=== PATIENT | male | born 1960 | race Native Hawaiian/Other Pacific Islander ===

== ENCOUNTER 2016-10-27 03:27 | Emergency (ER) | payer MEDICAID ==
[~2016-10-27] VITALS: Ht 180.3 cm; Wt 124.7 kg
[~2016-10-27 03:27] MED LIST: ALL100T PO; ASPI81TA13 PO; HYDR25TA4 PO; LOS50T PO; METF-312 PO; SIMV-8 PO; [UNRECOGNIZED DRUG - REMARK]
[2016-10-27 03:59] LABS: Basophils # (auto) 0 uL; Basophils % (auto) 0.3 % (0.0-2.0); Eosinophils # (auto) 0.1 uL; Eosinophils % (auto) 1.2 % (0.0-7.0); Hematocrit 48.3 % (41.0-53.0); Hemoglobin 15.7 g/dL (13.5-17.5); Lymphocytes # (auto) 3.5 uL; Mean Corpuscular Hgb Conc. 32.5 g/dL (32.0-36.0); Mean Corpuscular Volume 89.3 fL (80.0-100.0); Mean Platelet Volume 8.5 fL (7.4-10.4); Monocytes # (auto) 0.7 uL; Monocytes % (auto) 7.3 % (0.0-12.0); Neutrophils # (auto) 5.8 uL; Neutrophils % (auto) 57.2 % (37.0-80.0); Platelet Count (auto) 262 10^3/uL (140-450); Red Cell Distribution Width 12.7 % (11.6-16.0); White Blood Cell 10.2 10^3/uL (4.4-10.8)
[2016-10-27 04:27] LABS: Albumin 3.8 g/dL (3.4-5.0); BUN/Creatinine Ratio 16.3; Bilirubin, Total 0.5 mg/dL (0.2-1.0); Calcium 8.9 mg/dL (8.5-10.1); Total Protein 7.8 g/dL (6.4-8.2)
[2016-10-27 06:48] VITALS: BP 139/77
== END 2016-10-27 07:40 | disposition home or self-care (01) ==
LOC: ER 03:29
DX: G44.209 Tension-type headache, unspecified, not intractable (principal); E11.9 Type 2 diabetes mellitus without complications; M10.9 Gout, unspecified; I10 Essential (primary) hypertension; Z86.73 Personal history of transient ischemic attack (TIA), and cerebral infarction without residual deficits; Z79.82 Long term (current) use of aspirin; Z79.899 Other long term (current) drug therapy
CPT/HCPCS: 36415; 70450; 72125; 80053; 84484; 85025; 93005; 94761

== ENCOUNTER 2017-02-06 14:37 | Emergency (ER) | payer MEDICAID ==
[~2017-02-06] VITALS: Ht 180.3 cm; Wt 131.5 kg
[2017-02-06 18:20] VITALS: BP 117/78
[2017-02-06] MEDS ORDERED: IBUPROFEN 600 MG TAB PO ONE ×2 (18:47→19:00)
== END 2017-02-06 18:53 | disposition home or self-care (01) ==
LOC: ER 14:47
DX: G44.209 Tension-type headache, unspecified, not intractable (principal); E11.9 Type 2 diabetes mellitus without complications; I10 Essential (primary) hypertension; E78.5 Hyperlipidemia, unspecified; M10.9 Gout, unspecified; Z86.73 Personal history of transient ischemic attack (TIA), and cerebral infarction without residual deficits; Z87.891 Personal history of nicotine dependence
CPT/HCPCS: 70450; 82962

== ENCOUNTER 2017-08-27 11:54 | Emergency (ER) | payer MEDICAID, OTHER ==
[~2017-08-27] VITALS: Ht 180.3 cm; Wt 135.2 kg
[~2017-08-27 11:54] MED LIST changes: -METF-312 PO; +METF-370 PO
[2017-08-27 12:53] VITALS: BP 123/75
== END 2017-08-27 14:49 | disposition home or self-care (01) ==
LOC: ER 11:54
DX: M17.12 Unilateral primary osteoarthritis, left knee (principal); M10.9 Gout, unspecified; I25.10 Atherosclerotic heart disease of native coronary artery without angina pectoris; E11.9 Type 2 diabetes mellitus without complications; I10 Essential (primary) hypertension; E78.5 Hyperlipidemia, unspecified; W19.XXXA Unspecified fall, initial encounter; Y93.89 Activity, other specified; Y92.89 Other specified places as the place of occurrence of the external cause; Y99.8 Other external cause status; Z86.73 Personal history of transient ischemic attack (TIA), and cerebral infarction without residual deficits; Z79.82 Long term (current) use of aspirin; Z87.891 Personal history of nicotine dependence
CPT/HCPCS: 73562

== ENCOUNTER 2017-09-18 09:13 | Emergency (ER) | payer OTHER ==
[~2017-09-18] VITALS: Ht 180.3 cm; Wt 136.1 kg
[2017-09-18 09:23] VITALS: BP 160/58
== END 2017-09-18 13:20 | disposition home or self-care (01) ==
LOC: ER 09:13
DX: M25.562 Pain in left knee (principal); E11.9 Type 2 diabetes mellitus without complications; I10 Essential (primary) hypertension; M10.9 Gout, unspecified; Z86.73 Personal history of transient ischemic attack (TIA), and cerebral infarction without residual deficits; E78.5 Hyperlipidemia, unspecified; Z98.61 Coronary angioplasty status; Z87.891 Personal history of nicotine dependence; Z79.899 Other long term (current) drug therapy

== ENCOUNTER 2018-10-15 02:56 | Emergency (ER) | payer MEDICAID, OTHER ==
[~2018-10-15] VITALS: Ht 180.3 cm; Wt 118.8 kg
[~2018-10-15 02:56] MED LIST changes: +ASPI1TAB19 PO; -ASPI81TA13 PO
[2018-10-15 06:45] VITALS: BP 165/81
== END 2018-10-15 08:05 | disposition home or self-care (01) ==
LOC: ER 03:08
DX: M25.512 Pain in left shoulder (principal); E11.9 Type 2 diabetes mellitus without complications; E78.5 Hyperlipidemia, unspecified; I10 Essential (primary) hypertension; Z98.61 Coronary angioplasty status; Z86.73 Personal history of transient ischemic attack (TIA), and cerebral infarction without residual deficits; Z87.891 Personal history of nicotine dependence
CPT/HCPCS: 73030; 82962; 93005

== ENCOUNTER 2019-05-24 09:28 | Emergency (ER) | payer MEDICAID ==
[~2019-05-24] VITALS: Ht 180.3 cm; Wt 134.7 kg
[2019-05-24 09:52] VITALS: BP 174/100
== END 2019-05-24 12:33 | disposition home or self-care (01) ==
LOC: ER 09:33
DX: M10.9 Gout, unspecified (principal); E11.9 Type 2 diabetes mellitus without complications; E78.5 Hyperlipidemia, unspecified; I10 Essential (primary) hypertension; Z87.891 Personal history of nicotine dependence; Z98.61 Coronary angioplasty status; Z86.73 Personal history of transient ischemic attack (TIA), and cerebral infarction without residual deficits; Z79.899 Other long term (current) drug therapy

== ENCOUNTER → 2019-06-30 | Emergency (ER) | payer MEDICAID | END | disposition left against medical advice (07) | LOC: ER 19:09 | DX: M54.9 Dorsalgia, unspecified (principal); Z53.21 Procedure and treatment not carried out due to patient leaving prior to being seen by health care provider ==

== ENCOUNTER 2019-07-02 19:19 | Emergency (ER) | payer MEDICAID ==
[~2019-07-02] VITALS: Ht 180.3 cm; Wt 134.7 kg
[2019-07-02 19:32] VITALS: BP 174/103
[2019-07-02] MEDS ORDERED: IBUPROFEN 800 MG TAB PO ONE (21:45)
[2019-07-02] MEDS ORDERED: ACETAMINOPHEN 500 MG TAB PO ONE (21:45)
== END 2019-07-02 22:06 | disposition home or self-care (01) ==
LOC: ER 19:27
DX: M54.5 Low back pain (principal); E11.9 Type 2 diabetes mellitus without complications; E78.5 Hyperlipidemia, unspecified; I10 Essential (primary) hypertension; Z86.73 Personal history of transient ischemic attack (TIA), and cerebral infarction without residual deficits; Z95.5 Presence of coronary angioplasty implant and graft; Z79.899 Other long term (current) drug therapy

== ENCOUNTER 2019-07-26 03:16 | Inpatient (IN) | payer MEDICAID ==
[~2019-07-26] VITALS: Ht 180.3 cm; Wt 133.5 kg
[2019-07-26] MEDS ORDERED: cloNIDine HCL 0.1 MG TAB PO ONE (04:30)
[2019-07-26 04:32] LABS: Urine WBC None Seen /hpf (0 - 3)
[2019-07-26 04:40] LABS: Basophils # (auto) 0 uL; Basophils % (auto) 0.4 % (0.0-2.0); Eosinophils # (auto) 0.1 uL; Hematocrit 45.4 % (41.0-53.0); Hemoglobin 15.4 g/dL (13.5-17.5); Lymphocytes # (auto) 2.4 uL; Lymphocytes % (auto) 29.6 % (10.0-50.0); Mean Corpuscular Hemoglobin 30.8 pg (28.0-32.0); Mean Corpuscular Volume 90.5 fL (80.0-100.0); Monocytes # (auto) 0.7 uL; Monocytes % (auto) 8.9 % (0.0-12.0); Neutrophils # (auto) 4.8 uL; Neutrophils % (auto) 60.1 % (37.0-80.0); Nucleated Red Blood Cells % 0.1 %; Platelet Count (auto) 194 10^3/uL (140-450); Red Blood Cells 5.02 10^6/uL (4.5-5.90); Red Cell Distribution Width 12.4 % (11.8-14.3)
[2019-07-26 04:41] LABS: Urine Bacteria NONE SEEN /hpf (None Seen); Urine Blood Negative /uL (Negative); Urine Specific Gravity 1.007 (1.001-1.035)
[2019-07-26 04:58] LABS: Albumin 3.9 g/dL (3.4-5.0); Calcium 8.3 mg/dL (8.5-10.1)
[2019-07-26 05:01] LABS: Alcohol, Urine < 3.0 mg/dL (0-5); Amphetamine Screen, Urine NEGATIVE (NEGATIVE); Barbiturate Scree,Urine NEGATIVE (NEGATIVE); Benzodiazephine Screen, Urine NEGATIVE (NEGATIVE); Cannabinoid Screen, Urine POSITIVE (NEGATIVE); Cocaine Screen, Urine NEGATIVE (NEGATIVE); Opiate Scree,Urine NEGATIVE (NEGATIVE); Phencyclidine Screen, Urine NEGATIVE (NEGATIVE)
[2019-07-26 05:03] LABS: BUN/Creatinine Ratio 15.2; Bilirubin, Total 0.4 mg/dL (0.2-1.0); Total Protein 7.8 g/dL (6.4-8.2)
[2019-07-26] MEDS: SODIUM CHLORIDE 0.9% 1,000 ML IV SCH ×2 (09:58→23:18)
[2019-07-26] MEDS ORDERED: PROMETHAZINE HCL 25 MG/ML 1ML IV PRN (10:00)
[2019-07-26] MEDS ORDERED: TEMAZEPAM 15 MG CAP PO PRN (10:00)
[2019-07-26] MEDS ORDERED: NITROGLYCERIN 0.4 MG SL TAB SL PRN (10:00)
[2019-07-26] MEDS ORDERED: traMADol HCL 50 MG TAB PO PRN (10:00)
[2019-07-26] MEDS ORDERED: DEXTROSE (50%) 50ML SYRG IV PRN (10:00)
[2019-07-26] MEDS ORDERED: LACTULOSE 20Gm/30ML SOLN PO PRN (10:00)
[2019-07-26] MEDS ORDERED: ACETAMINOPHEN 500 MG TAB PO PRN (10:00)
[2019-07-26] MEDS ORDERED: MORPHINE SULF INJ 2 MG/ML SYRINGE 1ML IV PRN (10:00)
[2019-07-26] MEDS ORDERED: ASPirin-EC 81 mg tab PO SCH (10:00)
[2019-07-26 10:33] LABS: CRP High Sensitivity 0.12 mg/dL (< 0.3)
[2019-07-26] MEDS: ALLOPURINOL 100 MG TAB PO SCH (10:54)
[2019-07-26] MEDS: PANTOPRAZOLE 40 MG TAB PO SCH (10:55)
[2019-07-26] MEDS: ASPirin 81 mg TAB PO SCH (10:55)
[2019-07-26] MEDS: ENOXAPARIN SOD 40 MG/0.4 ML SYRINGE SC SCH (10:55)
[2019-07-26] MEDS: METOPROLOL TARTRATE 25 MG TAB PO SCH ×2 (10:56→22:00)
[2019-07-26] MEDS: LOSARTAN POTASSIUM 50 MG TAB PO SCH ×2 (10:56→21:57)
[2019-07-26] MEDS: InsuLIN REG 1unit/0.01ml Soln (100units/ml) SC SCH ×3 (11:30→22:03)
[2019-07-26] MEDS: ACCU-CHEK COMFORT CURVE STRIP VI SCH ×3 (11:49→22:04)
[2019-07-26 16:20] VITALS: BP 151/81
--- NOTE | 2019-07-26 16:20 | NUR ---
Telemetry admit from ER TAYE MORALES admitted to Telemetry unit after SBAR received. Patient oriented to Trang Farmer RN primary RN, unit, room, bed, and unit policies regarding patient care and visiting hours. Patient now on continuous telemetry monitoring, tele box #31 and telemetry reading on arrival to unit is NSR in the 70's. Weighed by bedscale and encouraged to call if they need something. Bed is in the lowest position with 2x side rails up for safety and call light is within reach. All questions and concerns addressed, patient verbalized understanding.
[2019-07-26 16:52] VITALS: BP 151/81
--- NOTE | 2019-07-26 19:00 | NUR ---
OPENING NOTE Received report from day shift RN. Patient is A&O X's 4 and is currently sitting on chair at bedside. Patient shows no s/s of distress and reports no pain and no SOB or palpitations/CP at this time. Educated patient on POC and to use call light when in need of assistance. Patient verbalized understanding. Will continue care.
[2019-07-26 22:00] VITALS: BP 155/77
[2019-07-26] MEDS ORDERED: ATORVASTATIN 20 MG TAB PO SCH (22:00)
[2019-07-27 05:00] VITALS: BP 164/79
[2019-07-27] MEDS: InsuLIN REG 1unit/0.01ml Soln (100units/ml) SC SCH ×2 (06:36→11:25)
[2019-07-27] MEDS: ACCU-CHEK COMFORT CURVE STRIP VI SCH ×2 (06:37→11:25)
[2019-07-27 07:30] VITALS: BP 155/77
--- NOTE | 2019-07-27 08:30 | NUR ---
Opening Note Received report on the patient. Awake lying in bed eating breakfast. Patient shows no signs of distress at this time. Discussed plan of care with the patient. Bed in lowest position, side rails up x2, and the call light is within reach. Will continue to monitor.
[2019-07-27 08:32] LABS: Cholesterol 238 mg/dL (< 200); HDL Cholesterol 43 mg/dL (40-59); LDL Cholesterol 173 mg/dL (< 100); Triglycerides 166 mg/dL (< 150)
[2019-07-27 09:00] VITALS: BP 154/86
[2019-07-27] MEDS: ASPirin 81 mg TAB PO SCH (09:53)
[2019-07-27] MEDS: LOSARTAN POTASSIUM 50 MG TAB PO SCH (09:53)
[2019-07-27] MEDS: PANTOPRAZOLE 40 MG TAB PO SCH (09:53)
[2019-07-27] MEDS: ENOXAPARIN SOD 40 MG/0.4 ML SYRINGE SC SCH (09:54)
[2019-07-27] MEDS: METOPROLOL TARTRATE 25 MG TAB PO SCH (09:54)
[2019-07-27] MEDS: ALLOPURINOL 100 MG TAB PO SCH (09:54)
[2019-07-27] MEDS ORDERED: LABETALOL HCL 5 MG/ML ML 20ML VIAL IV PRN (12:45)
[2019-07-27 13:00] VITALS: BP 153/74
[2019-07-27 14:25] VITALS: BP 153/74
--- NOTE | 2019-07-27 15:14 | NUR ---
Discharge instructions given as ordered. Encourage to follow up with PMD as instructed. All questions and concerns addressed. Patient verbalized understanding. IV removed with catheter intact, pressure dressing applied. Telemetry unit returned to ICU. Patient taken to vehicle via wheelchair with all personal belongings, accompanied by staff and family member. No distress noted at time of departure.
[2019-07-27] MEDS ORDERED: METOPROLOL TARTRATE 50 MG TAB PO SCH (22:00)
[2019-07-28] MEDS ORDERED: CLOPIDOGREL BISULFATE 75 MG TAB PO SCH (10:00)
== END 2019-07-27 15:03 | disposition home or self-care (01) | DRG 207 ==
LOC: ER 03:18 → TELE 03:19 → TELE-CENTR 16:16
PROVIDERS: ADMIT Internal Medicine; ATTEND Internal Medicine
DX: R00.2 Palpitations (principal); I24.9 Acute ischemic heart disease, unspecified; E11.65 Type 2 diabetes mellitus with hyperglycemia; F03.90 Unspecified dementia, unspecified severity, without behavioral disturbance, psychotic disturbance, mood disturbance, and anxiety; F41.9 Anxiety disorder, unspecified; I10 Essential (primary) hypertension; E66.9 Obesity, unspecified; Z68.41 Body mass index [BMI] 40.0-44.9, adult; E78.00 Pure hypercholesterolemia, unspecified; E78.5 Hyperlipidemia, unspecified; I25.2 Old myocardial infarction; I25.10 Atherosclerotic heart disease of native coronary artery without angina pectoris; M10.9 Gout, unspecified; Z82.49 Family history of ischemic heart disease and other diseases of the circulatory system; Z83.3 Family history of diabetes mellitus; Z86.73 Personal history of transient ischemic attack (TIA), and cerebral infarction without residual deficits
CPT/HCPCS: 36415; 71045; 80053; 80061; 80307; 81001; 82550; 82962; 83036; 84484; 85025; 85379; 85652; 86141; 87081; 93005; G0378; J1815